=== PATIENT | male | born 2000 | race American Indian/Alaskan Native ===

== ENCOUNTER 2021-09-16 12:32 | Emergency (ER) | payer SELFPAY ==
[2021-09-16 13:05] VITALS: BP 124/69
--- NOTE | 2021-09-16 13:06 | Emergency Department Report ---
Stated Complaint: SHORT OF BREATH - HPI History of Present Illness: dx with covid last week and still reporting SOB. denies fever - no other acute symptoms reported - ROS Review of Systems: SOB denies CP - Exam Physical Exam: NAD no resp distress, Non labored breathing MSE screening note: Focused history and physical exam performed. Due to findings the following was ordered: orders placed to be seen by provider in the back when room open up. MSE completed ED Disposition for MSE Condition: Stable
--- NOTE | 2021-09-16 13:43 | XRay Report ---
CHEST 1 VIEW 09/16/2021 12:35 PM INDICATION / CLINICAL INFORMATION: SOB - covid. COMPARISON: None available. FINDINGS: SUPPORT DEVICES: None. HEART / MEDIASTINUM: No significant abnormality. LUNGS / PLEURA: No significant pulmonary or pleural abnormality. No pneumothorax. ADDITIONAL FINDINGS: No significant additional findings. IMPRESSION: 1. No acute findings. Signer Name: Cosmo De Leon MD Signed: 09/16/2021 1:38 PM Workstation Name: [id number]
--- NOTE | 2021-09-16 15:46 | Emergency Department Report ---
ED ENT HPI - General Chief complaint: Dyspnea/Respdistress Stated complaint: SHORT OF BREATH Time Seen by Provider: 09/16/21 15:35 Source: patient Mode of arrival: Ambulatory Limitations: No Limitations - History of Present Illness Initial comments: 21-year-old black male with no past medical history presents to the emergency department for evaluation of 2-day history of shortness of breath. He states that about a week ago he was diagnosed with COVID then 2 days ago he started to have some shortness of breath that he feels got worse today. He denies fever, nausea, vomiting, abdominal pain, chest pain. MD complaint: other (Shortness of breath and body aches) -: Gradual, days(s) (2) Severity: moderate Severity scale (0 -10): 6 Quality: aching Consistency: intermittent Associated Symptoms: cough. denies: fever, gum swelling, toothache, pain with swallowing, sore throat, tinnitus, hearing loss, discharge from ear, rhinorrhea - Related Data Previous Rx's Medication Instructions Recorded Last Taken Type Benzonatate [Tessalon Perles] 100 mg PO Q8HR PRN #21 cap 09/16/21 Unknown Rx Ondansetron [Zofran Odt] 4 mg PO Q8HR PRN #12 tab.rapdis 09/16/21 Unknown Rx guaiFENesin/CODEINE [Robitussin AC] 10 ml PO TID PRN #120 ml 09/16/21 Unknown Rx methylPREDNISolone [Medrol 4MG 4 mg PO DAILY #1 pack 09/16/21 Unknown Rx DOSEPAK (21 tabs)] Allergies Allergy/AdvReac Type Severity Reaction Status Date / Time Sulfa (Sulfonamide Allergy Anaphylaxis Verified 09/16/21 13:06 Antibiotics) ED Dental HPI - General Chief complaint: Dyspnea/Respdistress Stated complaint: SHORT OF BREATH Time Seen by Provider: 09/16/21 15:35 Source: patient Mode of arrival: Ambulatory Limitations: No Limitations - Related Data Previous Rx's Medication Instructions Recorded Last Taken Type Benzonatate [Tessalon Perles] 100 mg PO Q8HR PRN #21 cap 09/16/21 Unknown Rx Ondansetron [Zofran Odt] 4 mg PO Q8HR PRN #12 tab.rapdis 09/16/21 Unknown Rx guaiFENesin/CODEINE [Robitussin AC] 10 ml PO TID PRN #120 ml 09/16/21 Unknown Rx methylPREDNISolone [Medrol 4MG 4 mg PO DAILY #1 pack 09/16/21 Unknown Rx DOSEPAK (21 tabs)] Allergies Allergy/AdvReac Type Severity Reaction Status Date / Time Sulfa (Sulfonamide Allergy Anaphylaxis Verified 09/16/21 13:06 Antibiotics) ED Review of Systems ROS: Stated complaint: SHORT OF BREATH Other details as noted in HPI Comment: All other systems reviewed and negative Constitutional: denies: chills, fever, malaise, weakness Eyes: denies: eye pain, vision change ENT: congestion. denies: throat pain Respiratory: cough, shortness of breath. denies: SOB with exertion, SOB at rest, stridor, wheezing Cardiovascular: denies: chest pain, orthopnea, edema, syncope, paroxysmal nocturnal dyspnea Gastrointestinal: denies: abdominal pain, nausea, vomiting, diarrhea, hematemesis, melena Genitourinary: denies: urgency, dysuria Musculoskeletal: myalgia. denies: back pain Neurological: headache. denies: weakness, numbness, paresthesias, confusion, abnormal gait ED Past Medical Hx - Medications Home Medications: Home Medications Medication Instructions Recorded Confirmed Last Taken Type Benzonatate [Tessalon Perles] 100 mg PO Q8HR PRN #21 cap 09/16/21 Unknown Rx Ondansetron [Zofran Odt] 4 mg PO Q8HR PRN #12 tab.rapdis 09/16/21 Unknown Rx guaiFENesin/CODEINE [Robitussin AC] 10 ml PO TID PRN #120 ml 09/16/21 Unknown Rx methylPREDNISolone [Medrol 4MG 4 mg PO DAILY #1 pack 09/16/21 Unknown Rx DOSEPAK (21 tabs)] ED Physical Exam - General Limitations: No Limitations General appearance: alert, in no apparent distress - Head Head exam: Present: atraumatic, normocephalic - Eye Eye exam: Present: normal appearance. Absent: scleral icterus, conjunctival injection, periorbital swelling, periorbital tenderness - ENT ENT exam: Absent: normal exam (Bilateral nasal mucosal edema), normal orophraynx (Erythema noted to posterior oropharynx) - Neck Neck exam: Present: normal inspection, full ROM. Absent: tenderness, lymphadenopathy - Respiratory Respiratory exam: Present: normal lung sounds bilaterally. Absent: respiratory distress, wheezes, rales, rhonchi, stridor, chest wall tenderness - Cardiovascular Cardiovascular Exam: Present: regular rate, normal heart sounds - GI/Abdominal GI/Abdominal exam: Present: soft, normal bowel sounds. Absent: distended, tenderness, guarding, rebound, rigid - Extremities Exam Extremities exam: Present: normal inspection, normal capillary refill. Absent: pedal edema, joint swelling, calf tenderness - Back Exam Back exam: Present: normal inspection. Absent: CVA tenderness (R), CVA tende rness (L), vertebral tenderness - Neurological Exam Neurological exam: Present: alert, oriented X3, CN II-XII intact, normal gait - Psychiatric Psychiatric exam: Present: normal affect, normal mood - Skin Skin exam: Present: warm, dry, intact, normal color ED Course Vital Signs 09/16/21 13:03 Temperature 98.6 F Pulse Rate 73 Respiratory 18 Rate Blood Pressure 124/69 [Right] O2 Sat by Pulse 100 Oximetry ED Medical Decision Making - Radiology Data Radiology results: report reviewed, image reviewed Chest x-ray: FINDINGS: SUPPORT DEVICES: None. HEART / MEDIASTINUM: No significant abnormality. LUNGS / PLEURA: No significant pulmonary or pleural abnormality. No pneumothorax. ADDITIONAL FINDINGS: No significant additional findings. IMPRESSION: 1. No acute findings. - Medical Decision Making 21-year-old black male with no past medical history presents to the emergency department for evaluation of 2-day history of shortness of breath. He states that about a week ago he was diagnosed with COVID then 2 days ago he started to have some shortness of breath that he feels got worse today. He denies fever, nausea, vomiting, abdominal pain, chest pain. Physical exam unremarkable. Chest x-ray without any acute abnormalities noted. Patient be treated with steroid pack, Zofran, Tessalon Perles, and Tylenol with codeine to manage symptoms. He is advised to take medications as prescribed and follow-up with primary care provider if no improvement or worsening symptoms. He is advised to return to the emergency department as needed. He verbalizes understanding of and agreement with plan of care. Critical care attestation.: If time is entered above; I have spent that time in minutes in the direct care of this critically ill patient, excluding procedure time. ED Disposition Clinical Impression: URI with cough and congestion Disposition: HOME / SELF CARE / HOMELESS Is pt being admited?: No Does the pt Need Aspirin: No Condition: Stable Instructions: Upper Respiratory Infection, Adult, [id number] Additional Instructions: Take medications as prescribed. Follow-up with primary care provider if no improvement or worsening symptoms. Return to the emergency department as needed. Prescriptions: methylPREDNISolone [Medrol 4MG DOSEPAK (21 tabs)] 4 mg PO DAILY #1 pack guaiFENesin/CODEINE [Robitussin AC] 10 ml PO TID PRN #120 ml PRN Reason: Cough Benzonatate [Tessalon Perles] 100 mg PO Q8HR PRN #21 cap PRN Reason: Cough Ondansetron [Zofran Odt] 4 mg PO Q8HR PRN #12 tab.rapdis PRN Reason: Nausea And Vomiting Referrals: MARIANNA SAMPSON MD [Primary Care Provider] - 3-5 Days Forms: Work/School Release Form(ED) Time of Disposition: 15:46
== END 2021-09-16 16:09 | disposition home or self-care (01) ==
LOC: ED 12:32
DX: J06.9 Acute upper respiratory infection, unspecified (principal); R05.9 Cough, unspecified; R68.89 Other general symptoms and signs; Z88.2 Allergy status to sulfonamides
CPT/HCPCS: 71045; 99283